=== PATIENT | female | born 1960 | race Caucasian/White ===

== ENCOUNTER 2017-09-26 02:24 | Emergency (ER) | payer OTHER ==
[~2017-09-26] VITALS: Ht 165.1 cm; Wt 56.7 kg
--- NOTE | 2017-09-26 02:34 | ED GI/GU/ABDOMINAL COMPLAINT ---
History of Present Illness General Chief Complaint: Abdominal Pain/Flank Pain Stated Complaint: " UPPER ABD PAIN" Source: patient, family Exam Limitations: no limitations Vital Signs & Intake/Output Vital Signs & Intake/Output Vital Signs Date Time Temp Pulse Resp B/P B/P Pulse O2 O2 Flow FiO2 Mean Ox Delivery Rate 09/26 0436 97.8 78 18 130/82 99 Room Air 09/26 0303 Room Air 09/26 0229 97.6 91 18 122/90 100 Room Air Allergies Coded Allergies: morphine (Intermediate, "JITTERY. LIKE ANTS IN LEGS" 09/26/17) Reconcile Medications Pantoprazole Sodium (Protonix) 40 MG TABLET. 1 TAB PO BID STOMACH PAIN Triage Note: TRIAGE: PATIENT TO ER FROM HOME REPORTING UPPER MIDDLE ABDOMEN, STABBING SINCE 10:45PM, CONSTANT. PATIENT DENIES N/V/D, DENIES SOB. LAST BM APPROX MIDNIGHT, REGULAR. DENIES URINARY DIFFICULTIES. REPORTS "PAIN STARTED AFTER EATING, DRINKING CUP OF TEA, CAME ON SUDDENLY. NOT LIKE HEARTBURN AT ALL." Triage Nurses Notes Reviewed? yes ? n Is pt currently ? No Onset: Abrupt Duration: hour(s): Timing: single episode today Location: epigastric Radiation: no radiation Prior Abdominal Problems: none Modifying Factors: Worsens With: palpation. Associated Symptoms: abdominal pain HPI: 57 yo woman presents with mid epigastric discomfort for the past 4 hours. "It really hurts...." No nausea, vomiting, diarrhea. SHe had a normal bowel movement this evening. No fever, chills, chest pain. She ate nachos tonight, a common meal for her, and identifies to other suspicious food items. She is otherwise well. Past History Travel History Traveled to [place] past 21 day No Medical History Any Pertinent Medical History? 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 No Review of Systems Review of Systems Constitutional: Reports: no symptoms. EENTM: Reports: no symptoms. Respiratory: Reports: no symptoms. Cardiovascular: Reports: no symptoms. GI: Reports: no symptoms. Genitourinary: Reports: no symptoms. Musculoskeletal: Reports: no symptoms. Skin: Reports: no symptoms. Neurological/Psychological: Reports: no symptoms. Hematologic/Endocrine: Reports: no symptoms. Immunologic/Allergic: Reports: no symptoms. All Other Systems: Reviewed and Negative Physical Exam Physical Exam General Appearance: well developed/nourished, mild distress Head: atraumatic, normal appearance Eyes: Bilateral: normal appearance. Ears, Nose, Throat, Mouth: hearing grossly normal, moist mucous membrane Neck: normal inspection, supple, full range of motion, normal alignment Respiratory: normal breath sounds, chest non-tender, no respiratory distress, quiet respiration, lungs clear Cardiovascular: regular rate/rhythm Gastrointestinal: normal bowel sounds, soft, mild mid epigastric tenderness to palpation. Back: normal inspection Extremities: normal range of motion Neurologic/Psych: no motor/sensory deficits, awake, alert, oriented x 3 Skin: intact, normal color, warm/dry Core Measures ACS in differential dx? No Sepsis Present: No Sepsis Focused Exam Completed? No Progress Differential Diagnosis: gerd, ulcer vs other. Plan of Care: Orders Procedure Date/time Status TROPONIN LEVEL 09/26 233 Complete LIPASE 09/26 233 Complete HEPATIC FUNCTION PANEL 09/26 233 Complete CBC WITHOUT DIFFERENTIAL 09/26 233 Complete BASIC METABOLIC PANEL 09/26 233 Complete AMYLASE 09/26 233 Complete EKG 09/26 229 Active Laboratory Tests 09/26/17 0250: Anion Gap 10, Estimated GFR > 60, BUN/Creatinine Ratio 35.7 H, Glucose 119 H, Calcium 9.9, Total Bilirubin 0.6, Direct Bilirubin 0.5 H, AST 123 H, ALT 91 H , Alkaline Phosphatase 86, Troponin I < 0.01, Total Protein 7.5, Albumin 4.6, Amylase 107, Lipase 258, CBC w Diff MAN DIFF ORDERED, RBC 4.81, MCV 86.1, MCH 28.1, MCHC 32.7 L, RDW 13.6, MPV 9.0, Gran % 87.1 H, Lymphocytes % 7.5 L, Monocytes % 4.8, Eosinophils % 0.4, Basophils % 0.2, Absolute Granulocytes 10.8 H, Segmented Neutrophils 89 H, Absolute Lymphocytes 0.9 L, Lymphocytes 2 L, Monocytes 8, Absolute Monocytes 0.6, Absolute Eosinophils 0, Basophils 1, Absolute Basophils 0, Platelet Estimate ADEQUATE, Hypochromic-Microcytic 1+, Ovalocytes FEW, Fld Total RBCs Counted 100 Diagnostic Imaging: Viewed by Me: CT Scan. Discussed w/RAD: CT Scan. Radiology Impression: PATIENT: VIDAL PADGETT PRESENT AGE: 57 PATIENT ACCOUNT NO: [id number] : 60 LOCATION: [facility] ORDERING PHYSICIAN: Freddy Aaron MD SERVICE DATE: 09/26/17 EXAM TYPE: CAT - CT ABD & PELVIS W/O IV CONTRAS EXAMINATION: CT ABDOMEN AND PELVIS WITHOUT CONTRAST CLINICAL INFORMATION: Mid epigastric abdominal pain COMPARISON: None TECHNIQUE: Multidetector volumetric imaging was performed from the superior aspect of the liver through the pubic symphysis. Sagittal and coronal reformatted images were obtained on the technologist's workstation. DLP: 240.01 mGy-cm FINDINGS: LUNG BASES: The visualized lung bases are unremarkable. LIVER, GALLBLADDER, AND BILIARY TREE: The liver is normal in size, shape, and attenuation. There is a subcentimeter hypoattenuating lesion in the anterior left hepatic lobe, suggestive of a cyst. No biliary ductal dilatation is present. Cholelithiasis is noted. PANCREAS: Unremarkable. SPLEEN: A splenic calcification is noted consistent with a granuloma. ADRENAL GLANDS: Unremarkable. KIDNEYS AND URETERS: No hydronephrosis or ureteral calculi are seen bilaterally. There are a few left lower pole renal calculi measuring up to 3 mm. BLADDER: Unremarkable. GASTROINTESTINAL TRACT: There is prominent distention of the stomach with fluid/debris. The descending and sigmoid colon are collapsed, which significantly limits assessment for wall thickening; no significant pericolonic stranding is seen to strongly suggest a colitis. Suture lines are visible in the right abdomen which may reflect an enterocolonic anastomosis. No evidence of bowel obstruction. ABDOMINAL WALL: No significant hernia is appreciated. LYMPH NODES: No lymphadenopathy is seen, though assessment is partially limited in the absence of intravenous contrast. VASCULAR : Unremarkable. PELVIC VISCERA: There is a hyperdense structure in the right adnexa measuring 82 Hounsfield units and 4.8 x 3.7 cm in the axial plane and 4.8 cm in craniocaudal dimension. OSSEOUS STRUCTURES: Unremarkable. IMPRESSION: 1. Prominent distention of the stomach with fluid/debris. In the proper clinical setting, gastric outlet obstruction cannot be excluded. 2. Cholelithiasis. 3. Few left lower pole renal calculi measuring up to 3 mm without hydronephrosis. 4. Hyperdense structure in the right adnexa measuring 4.8 x 3.7 x 4.8 cm, of uncertain etiology. Internal density measures greater than typically seen with blood products and therefore could reflect partial calcification. Differential considerations include an ovarian mass or pedunculated fibroid. Further assessment with pelvic MRI is recommended. DICTATED BY: Dharmesh Willard MD DATE/ TIME DICTATED:09/26/17328 [employer] OPERATOR:LISSETH DATE/TIME TRANSCRIBED: 09/26/17328 CONFIDENTIAL, DO NOT COPY WITHOUT APPROPRIATE AUTHORIZATION. < Electronically signed in Other Vendor System> SIGNED BY: Dharmesh Willard MD 09/26/17 0356 Initial ED EKG: nsr, no acute changes Departure Departure Disposition: HOME OR SELF CARE Condition: Stable Clinical Impression Primary Impression: Abdominal pain Secondary Impressions: Pelvic mass in female Referrals: Lefty WLIEY,Gurjit Valdez (PCP/Family) Departure Forms: Customer Survey General Discharge Information Prescriptions: Current Visit Scripts Pantoprazole Sodium (Protonix) 1 TAB PO BID #60 TAB Comments 09/26/17, 4:27am.... discussed findings at length... pt tolerated oral intake in the ED... thus, I doubt gastric obstruction as raised in CT scan.... discussed also the pelvic mass and encouraged follow up with her pmd and lead oxide mill tender. Pt also referred to GI and prescribed protonix 40 bid. close follow up advised.
[2017-09-26 03:02] LABS: ABSOLUTE BASOPHIL COUNT 0 /CUMM (0.0-0.2); ABSOLUTE EOSINOPHIL COUNT 0 /CUMM (0.0-0.7); ABSOLUTE GRANULOCYTE CT 10.8 /CUMM (1.4-6.5); ABSOLUTE LYMPH COUNT 0.9 /CUMM (1.2-3.4); ABSOLUTE MONOCYTE COUNT 0.6 /CUMM (0.10-0.60); BASOPHIL % 0.2 % (0.0-2.0); EOSINOPHIL % 0.4 % (0-5); GRANULOCYTE % 87.1 % (42.2-75.2); HEMATOCRIT 41.4 % (37-47); MEAN CORPUSCULAR HGB 28.1 PG (27.0-31.0); MEAN CORPUSCULAR HGB CONC 32.7 G/DL (33.0-37.0); MEAN CORPUSCULAR VOLUME 86.1 FL (81.0-99.0); PLATELET COUNT 260 /CUMM (130-400); RBC DISTRIBUTION WIDTH 13.6 % (11.5-14.5); RED BLOOD CELL CT 4.81 /CUMM (4.20-5.40); WHITE BLOOD CELL COUNT 12.4 /CUMM (4.8-10.8)
--- NOTE | 2017-09-26 03:56 | CT SCAN REPORT ---
EXAMINATION: CT ABDOMEN AND PELVIS WITHOUT CONTRAST CLINICAL INFORMATION: Mid epigastric abdominal pain COMPARISON: None TECHNIQUE: Multidetector volumetric imaging was performed from the superior aspect of the liver through the pubic symphysis. Sagittal and coronal reformatted images were obtained on the technologist's workstation. DLP: 240.01 mGy-cm FINDINGS: LUNG BASES: The visualized lung bases are unremarkable. LIVER, GALLBLADDER, AND BILIARY TREE: The liver is normal in size, shape, and attenuation. There is a subcentimeter hypoattenuating lesion in the anterior left hepatic lobe, suggestive of a cyst. No biliary ductal dilatation is present. Cholelithiasis is noted. PANCREAS: Unremarkable. SPLEEN: A splenic calcification is noted consistent with a granuloma. ADRENAL GLANDS: Unremarkable. KIDNEYS AND URETERS: No hydronephrosis or ureteral calculi are seen bilaterally. There are a few left lower pole renal calculi measuring up to 3 mm. BLADDER: Unremarkable. GASTROINTESTINAL TRACT: There is prominent distention of the stomach with fluid/debris. The descending and sigmoid colon are collapsed, which significantly limits assessment for wall thickening; no significant pericolonic stranding is seen to strongly suggest a colitis. Suture lines are visible in the right abdomen which may reflect an enterocolonic anastomosis. No evidence of bowel obstruction. ABDOMINAL WALL: No significant hernia is appreciated. LYMPH NODES: No lymphadenopathy is seen, though assessment is partially limited in the absence of intravenous contrast. VASCULAR: Unremarkable. PELVIC VISCERA: There is a hyperdense structure in the right adnexa measuring 82 Hounsfield units and 4.8 x 3.7 cm in the axial plane and 4.8 cm in craniocaudal dimension. OSSEOUS STRUCTURES: Unremarkable. IMPRESSION: 1. Prominent distention of the stomach with fluid/debris. In the proper clinical setting, gastric outlet obstruction cannot be excluded. 2. Cholelithiasis. 3. Few left lower pole renal calculi measuring up to 3 mm without hydronephrosis. 4. Hyperdense structure in the right adnexa measuring 4.8 x 3.7 x 4.8 cm, of uncertain etiology. Internal density measures greater than typically seen with blood products and therefore could reflect partial calcification. Differential considerations include an ovarian mass or pedunculated fibroid. Further assessment with pelvic MRI is recommended.
[2017-09-26] MEDS ORDERED: PROTONIX40 M3 PO (04:26)
[2017-09-26 04:36] VITALS: BP 130/82
== END 2017-09-26 04:44 ==
LOC: ERH 02:24
PROVIDERS: Pediatrics
DX: R19.09 Other intra-abdominal and pelvic swelling, mass and lump (principal)
CPT/HCPCS: 74176; 93005; 93010; 96361; 96365; 96375; J0131; J1885